=== PATIENT | female | born 1970 | race Caucasian/White ===

== ENCOUNTER → 2017-09-23 | Outpatient (CLI) | payer OTHER ==
[2017-09-23 13:03] LABS: Basophils % (A) 0 %; Eosinophils # (A) 0.1 k/uL (0-0.7); Eosinophils % (A) 1 %; HCT 39.8 % (34.0-46.0); Lymphocytes # (A) 2.2 k/uL (1.0-4.8); Lymphocytes % (A) 23 %; MCH 31.9 pg (25.0-35.0); MCHC 32.6 g/dL (31.0-37.0); MCV 97.7 fL (80.0-100.0); Mean Platelet Volume 7.1; Monocytes # (A) 0.4 k/uL (0-1.0); Monocytes % (A) 4 %; Neutrophils # (A) 6.7 k/uL (1.3-7.7); Neutrophils % (A) 70 %; Platelet Count 248 k/uL (150-450); RBC 4.07 m/uL (3.80-5.40); RDW 12.6 % (11.5-15.5); WBC 9.5 k/uL (3.8-10.6)
[2017-09-23 13:15] LABS: ALT 22 U/L (9-52); AST 22 U/L (14-36); Albumin 4.4 g/dL (3.5-5.0); Alkaline Phosphatase 64 U/L (38-126); Anion Gap 7 mmol/L; Blood Urea Nitrogen 10 mg/dL (7-17); Calcium 9.4 mg/dL (8.4-10.2); Carbon Dioxide 25 mmol/L (22-30); Chloride 106 mmol/L (98-107); Cholesterol 181 mg/dL (<200); Glucose 106 mg/dL (74-99); Potassium 4.6 mmol/L (3.5-5.1); Sodium 138 mmol/L (137-145); Total Bilirubin 0.4 mg/dL (0.2-1.3); Total Protein 7.2 g/dL (6.3-8.2); Triglycerides 77 mg/dL (<150)
[2017-09-23 13:22] LABS: LDL Cholesterol,Calculated 42 mg/dL (0-99)
[2017-09-23 13:24] LABS: HDL Cholesterol 124 mg/dL (40-60)
--- NOTE | 2017-09-23 16:28 | XR ---
EXAMINATION TYPE: XR chest 2V DATE OF EXAM: 09/23/2017 COMPARISON: Prior chest x-ray 05/16/2013 HISTORY: Chest pain TECHNIQUE: Frontal and lateral views of the chest are obtained. FINDINGS: There is no focal air space opacity, pleural effusion, or pneumothorax seen. The cardiac silhouette size is within normal limits. The osseous structures are intact. IMPRESSION: No acute cardiopulmonary process.
[2017-09-23 22:55] LABS: Hemoglobin A1C 5.2 % (4.0-6.0)
== END | disposition home or self-care (01) ==
LOC: LABWHC1 12:46
PROVIDERS: ATTEND Family Medicine
DX: R07.9 Chest pain, unspecified (principal); I82.409 Acute embolism and thrombosis of unspecified deep veins of unspecified lower extremity; I10 Essential (primary) hypertension; Z79.899 Other long term (current) drug therapy
CPT/HCPCS: 36415; 71046; 80053; 80061; 82672; 83001; 83036; 85025; 85379

== ENCOUNTER → 2017-09-25 | Outpatient (CLI) | payer OTHER ==
--- NOTE | 2017-09-25 14:30 | US ---
EXAMINATION TYPE: US abdomen comp/pelvis limited DATE OF EXAM: 09/25/2017 COMPARISON: CT abdomen pelvis 02/03/2016 CLINICAL HISTORY: N28.1 renal cyst, K76.89 liver cyst. Liver and renal cysts. History of kidney stone s. LLQ pain EXAM MEASUREMENTS: Liver Length: 14.4 cm Gallbladder Wall: 0.2 cm CBD: 0.3 cm Spleen: 9.7 cm Right Kidney: 10.6 x 3.9 x 4.5 cm Left Kidney: 10.3 x 5.8 x 4.9 cm Pancreas: visualized portions appear wnl Liver: multiple cystic areas, largest = 3.1 x 2.7 x 3.2cm correlate with CT findings Gallbladder: no evidence of stones CBD: wnl Spleen: wnl Right Kidney: cystic areas, largest = 1.4 x 1.3 x 1.3cm Left Kidney: cystic areas, largest = 2.3 x 2.1 x 2.6cm. dense echogenic area mid = 0.5cm Upper IVC: wnl Abd Aorta: wnl Bladder: wnl Bilateral Jets Seen yes Incidental finding: cystic area with septation left ovary = 3.2 x 3.3 x 2.8cm There is no ascites. Renal lesions are anechoic with imperceptible wall and show increased through tr ansmission compatible with simple cysts IMPRESSION: Cysts are again noted within the liver and kidneys, left-sided nonobstructive nephrolithi asis. Cystic left ovarian lesion with internal septation, follow-up suggested.
== END ==
LOC: RADUSWWP 10:54
PROVIDERS: ATTEND Family Medicine
DX: K76.89 Other specified diseases of liver (principal); N28.1 Cyst of kidney, acquired; N20.0 Calculus of kidney; N83.202 Unspecified ovarian cyst, left side
CPT/HCPCS: 76700; 76857

== ENCOUNTER 2018-05-06 21:33 | Emergency (ER) | payer OTHER ==
[2018-05-06 21:38] VITALS: TEMP 98.2
[2018-05-06] MEDS ORDERED: MORPHINE SULFATE 4 MG/ML SYRINGE IV STA (21:48)
[2018-05-06] MEDS ORDERED: SODIUM CHLORIDE 0.9% 1,000 ML IV STA (21:48)
--- NOTE | 2018-05-06 21:53 | ED ---
General Adult HPI - General Chief complaint: Urogenital Stated complaint: Kidney stone Time Seen by Provider: 05/06/18 21:43 Source: patient, RN notes reviewed, old records reviewed Mode of arrival: ambulatory Limitations: no limitations - History of Present Illness Initial comments: 47-year-old presenting for evaluation of left flank pain and hematuria. Patient has history of kidney stones. She states this is similar to her previous episodes. She reports bright red and throughout the day today. She states this is improving and is cleared up this evening. Pain is constant and localized in her lower abdomen and left flank. Patient has had some nausea, no vomiting. No fever or chills. No change in bowels. Patient is otherwise healthy. - Related Data Home Medications Medication Instructions Recorded Confirmed Dextroamphetamine/Amphetamine 20 mg PO DAILY 03/21/14 05/06/18 [Adderall] Ibuprofen [Motrin Ib] 200 mg PO Q6H PRN 05/06/18 05/06/18 Previous Rx's Medication Instructions Recorded HYDROcodone/APAP 5-325MG [[place] 1 tab PO Q6HR PRN #12 tab 05/06/18 5-325] Ibuprofen [Motrin] 600 mg PO Q8HR PRN #24 tab 05/06/18 Tamsulosin [Flomax] 0.4 mg PO DAILY #30 cap 05/06/18 Allergies Allergy/AdvReac Type Severity Reaction Status Date / Time No Known Allergies Allergy Verified 05/06/18 22:03 Review of Systems ROS Statement: Those systems with pertinent positive or pertinent negative responses have been documented in the HPI. ROS Other: All systems not noted in ROS Statement are negative. Past Medical History Past Medical History: No Reported History History of Any Multi-Drug Resistant Organisms: None Reported Past Surgical History: No Surgical Hx Reported Additional Past Surgical History / Comment(s): x 2, Tubal ligation Past Psychological History: Anxiety Smoking Status: Current every day smoker Past Alcohol Use History: Occasional Past Drug Use History: None Reported General Exam Limitations: no limitations General appearance: alert, in no apparent distress Head exam: Present: atraumatic, normocephalic Eye exam: Present: normal appearance, PERRL ENT exam: Present: normal exam Neck exam: Present: normal inspection. Absent: tenderness Respiratory exam: Present: normal lung sounds bilaterally. Absent: respiratory distress, wheezes Cardiovascular Exam: Present: regular rate, normal rhythm GI/Abdominal exam: Present: soft. Absent: distended, tenderness Extremities exam: Present: normal inspection, normal capillary refill. Absent: pedal edema Back exam: Present: normal inspection, full ROM, CVA tenderness (L) Neurological exam: Present: alert, oriented X3, CN II-XII intact. Absent: motor sensory deficit Psychiatric exam: Present: normal affect, normal mood Skin exam: Present: warm, dry, intact. Absent: cyanosis, diaphoretic Course Vital Signs 05/06/18 05/06/18 21:35 23:15 Temperature 98.2 F Pulse Rate 76 87 Respiratory 18 16 Rate Blood Pressure 157/100 157/97 O2 Sat by Pulse 99 99 Oximetry Medical Decision Making - Medical Decision Making 41 sexual female history kidney stones presenting with flank pain and hematuria. X-rays obtained, negative for stone or any acute intra-abdominal process. CT is obtained, shows mild bilateral hydronephrosis with a 5 mm stone in the left distal ureter. There is concern for some obstruction the right ureter as well although no definitive stone is identified. Patient has no blood cell count mildly elevated likely reactive. Hemoglobin stable 12.9, urinalysis consistent with stone and no infection. Greater than 182 red cells and only 10 white cells. Urine culture is obtained and is pending. Patient's given Toradol, and reevaluation she is feeling much better. No vomiting. She will urine strainer the emergency department and prescribed pain medications. She will follow-up with urology. - Lab Data Result diagrams: 05/06/18 21:53 05/06/18 21:53 Lab Results 05/06/18 05/06/18 05/06/18 Range/Units 21:53 21:53 21:53 WBC 12.9 H (3.8-10.6) k/uL RBC 4.06 (3.80-5.40) m/uL Hgb 12.9 (11.4-16.0) gm/dL Hct 40.1 (34.0-46.0) % MCV 98.8 (80.0-100.0) fL MCH 31.8 (25.0-35.0) pg MCHC 32.2 (31.0-37.0) g/dL RDW 12.7 (11.5-15.5) % Plt Count 243 (150-450) k/uL Neutrophils % 61 % Lymphocytes % 30 % Monocytes % 6 % Eosinophils % 1 % Basophils % 0 % Neutrophils # 7.8 H (1.3-7.7) k/uL Lymphocytes # 3.8 (1.0-4.8) k/uL Monocytes # 0.7 (0-1.0) k/uL Eosinophils # 0.2 (0-0.7) k/uL Basophils # 0.0 (0-0.2) k/uL PT (9.0-12.0) sec INR (<1.2) APTT (22.0-30.0) sec Sodium 137 (137-145) mmol/L Potassium 3.9 (3.5-5.1) mmol/L Chloride 105 (98-107) mmol/L Carbon Dioxide 23 (22-30) mmol/L Anion Gap 9 mmol/L BUN 19 H (7-17) mg/dL Creatinine 0.74 (0.52-1.04) mg/dL Est GFR (CKD-EPI)AfAm >90 (>60 ml/min/1.73 sqM) Est GFR (CKD-EPI)NonAf >90 (>60 ml/min/1.73 sqM) Glucose 90 (74-99) mg/dL Plasma Lactic Acid Han 0.9 (0.7-2.0) mmol/L Calcium 9.9 (8.4-10.2) mg/dL Total Bilirubin 0.4 (0.2-1.3) mg/dL AST 27 (14-36) U/L ALT 27 (9-52) U/L Alkaline Phosphatase 56 (38-126) U/L Total Protein 7.6 (6.3-8.2) g/dL Albumin 4.6 (3.5-5.0) g/dL Amylase 65 (30-110) U/L Lipase 97 (23-300) U/L Urine Color Urine Appearance (Clear) Urine pH (5.0-8.0) Ur Specific [place] (1.001-1.035) Urine Protein (Negative) Urine Glucose (UA) (Negative) Urine Ketones (Negative) Urine Blood (Negative) Urine Nitrite (Negative) Urine Bilirubin (Negative) Urine Urobilinogen (<2.0) mg/dL Ur Leukocyte Esterase (Negative) Urine RBC (0-5) /hpf Urine WBC (0-5) /hpf Ur Squamous Epith Cells (0-4) /hpf Urine Bacteria (None) /hpf Urine Mucus (None) /hpf 05/06/18 05/06/18 Range/Units 21:53 21:53 WBC (3.8-10.6) k/uL RBC (3.80-5.40) m/uL Hgb (11.4-16.0) gm/dL Hct (34.0-46.0) % MCV (80.0-100.0) fL MCH (25.0-35.0) pg MCHC (31.0-37.0) g/dL RDW (11.5-15.5) % Plt Count (150-450) k/uL Neutrophils % % Lymphocytes % % Monocytes % % Eosinophils % % Basophils % % Neutrophils # (1.3-7.7) k/uL Lymphocytes # (1.0-4.8) k/uL Monocytes # (0-1.0) k/uL Eosinophils # (0-0.7) k/uL Basophils # (0-0.2) k/uL PT 10.3 (9.0-12.0) sec INR 1.0 (<1.2) APTT 25.4 (22.0-30.0) sec Sodium (137-145) mmol/L Potassium (3.5-5.1) mmol/L Chloride (98-107) mmol/L Carbon Dioxide (22-30) mmol/L Anion Gap mmol/L BUN (7-17) mg/dL Creatinine (0.52-1.04) mg/dL Est GFR (CKD-EPI)AfAm (>60 ml/min/1.73 sqM) Est GFR (CKD-EPI)NonAf (>60 ml/min/1.73 sqM) Glucose (74-99) mg/dL Plasma Lactic Acid [place] (0.7-2.0) mmol/L Calcium (8.4-10.2) mg/dL Total Bilirubin (0.2-1.3) mg/dL AST (14-36) U/L ALT (9-52) U/L Alkaline Phosphatase (38-126) U/L Total Protein (6.3-8.2) g/dL Albumin (3.5-5.0) g/dL Amylase (30-110) U/L Lipase (23-300) U/L Urine Color Yellow Urine Appearance Clear (Clear) Urine pH 5.5 (5.0-8.0) Ur Specific [place] 1.006 (1.001-1.035) Urine Protein Trace H (Negative) Urine Glucose (UA) Negative (Negative) Urine Ketones Negative (Negative) Urine Blood Large H (Negative) Urine Nitrite Negative (Negative) Urine Bilirubin Negative (Negative) Urine Urobilinogen <2.0 (<2.0) mg/dL Ur Leukocyte Esterase Negative (Negative) Urine RBC >182 H (0-5) /hpf Urine WBC 10 H (0-5) /hpf Ur Squamous Epith Cells 2 (0-4) /hpf Urine Bacteria Occasional H (None) /hpf Urine Mucus Rare H (None) /hpf Disposition Clinical Impression: Kidney stone Disposition: HOME SELF-CARE Condition: Good Instructions: Kidney Stones (ED) Prescriptions: HYDROcodone/APAP 5-325MG [[place] 5-325] 1 tab PO Q6HR PRN #12 tab PRN Reason: Pain Ibuprofen [Motrin] 600 mg PO Q8HR PRN #24 tab PRN Reason: Pain Tamsulosin [Flomax] 0.4 mg PO DAILY #30 cap Is patient prescribed a controlled substance at d/c from ED?: No Referrals: Jude Keating MD [Primary Care Provider] - 1-2 days Arjun Sorenson MD [STAFF PHYSICIAN] - 1-2 days Time of Disposition: 23:50
[2018-05-06 22:21] LABS: Appearance,Urine Clear (Clear); Bacteria,Urine Occasional /hpf; Bilirubin,Urine Negative (Negative); Blood,Urine Large (Negative); Color,Urine Yellow; Glucose,Urine (UA) Negative (Negative); Ketones,Urine Negative (Negative); Leukocyte Esterase,Urine Negative (Negative); Mucus,Urine Rare /hpf; Nitrite,Urine Negative (Negative); PH, Urine 5.5 (5.0-8.0); Protein,Urine Trace (Negative); RBC,Urine >182 /hpf (0-5); Specific Gravity,Urine 1.006 (1.001-1.035); Squamous Epithelial Cell,Urine 2 /hpf (0-4); Urobilinogen,Urine <2.0 mg/dL (<2.0); WBC,Urine 10 /hpf (0-5)
[2018-05-06 22:22] LABS: Partial Thromboplastin Time 25.4 sec (22.0-30.0); Prothrombin Time 10.3 sec (9.0-12.0)
[2018-05-06 22:32] LABS: ALT 27 U/L (9-52); AST 27 U/L (14-36); Albumin 4.6 g/dL (3.5-5.0); Alkaline Phosphatase 56 U/L (38-126); Amylase 65 U/L (30-110); Anion Gap 9 mmol/L; Blood Urea Nitrogen 19 mg/dL (7-17); Calcium 9.9 mg/dL (8.4-10.2); Carbon Dioxide 23 mmol/L (22-30); Chloride 105 mmol/L (98-107); Glucose 90 mg/dL (74-99); Lipase 97 U/L (23-300); Potassium 3.9 mmol/L (3.5-5.1); Sodium 137 mmol/L (137-145); Total Bilirubin 0.4 mg/dL (0.2-1.3); Total Protein 7.6 g/dL (6.3-8.2)
[2018-05-06 22:48] LABS: Basophils % (A) 0 %; Eosinophils # (A) 0.2 k/uL (0-0.7); Eosinophils % (A) 1 %; HCT 40.1 % (34.0-46.0); HGB 12.9 gm/dL (11.4-16.0); Lymphocytes # (A) 3.8 k/uL (1.0-4.8); Lymphocytes % (A) 30 %; MCH 31.8 pg (25.0-35.0); MCHC 32.2 g/dL (31.0-37.0); MCV 98.8 fL (80.0-100.0); Mean Platelet Volume 6.4; Monocytes # (A) 0.7 k/uL (0-1.0); Monocytes % (A) 6 %; Neutrophils # (A) 7.8 k/uL (1.3-7.7); Neutrophils % (A) 61 %; Platelet Count 243 k/uL (150-450); RBC 4.06 m/uL (3.80-5.40); RDW 12.7 % (11.5-15.5); WBC 12.9 k/uL (3.8-10.6)
--- NOTE | 2018-05-06 22:56 | XR ---
EXAMINATION TYPE: XR KUB DATE OF EXAM: 05/06/2018 COMPARISON: 02/03/2016 HISTORY: Abdominal pain TECHNIQUE: 2 views upright FINDINGS: Bowel gas pattern is normal. There is no sign of intestinal obstruction or pneumoperitoneum . Fecal pattern is normal. Lung bases are clear. There are clips from tubal ligation. There are no pa thologic ossifications over the kidneys. IMPRESSION: Nonacute abdomen. No change.
[2018-05-06] MEDS ORDERED: KETOROLAC 30 MG/ML 1 ML VIAL IVP STA (23:05)
[2018-05-06 23:16] VITALS: BP 157/97; PULSE 87; RESP 16
--- NOTE | 2018-05-06 23:17 | CT ---
EXAMINATION TYPE: CT abdomen pelvis wo con DATE OF EXAM: 05/06/2018 COMPARISON: 02/03/2016 HISTORY: Bilateral abd pain, r/o stones CT DLP: 292.90 mGycm Automated exposure control for dose reduction was used. TECHNIQUE: Helical acquisition of images was performed from the lung bases through the pelvis. FINDINGS: Lung bases are clear. There is no pleural effusion. Heart size is normal. There is no pericardial eff usion. There are multiple cysts in the liver that measure up to 3 cm. Bile ducts are not dilated. Gal lbladder appears normal. Spleen appears normal. There is no pancreatic mass. There is no adrenal mass. Kidneys have normal size. There is bilateral hydronephrosis. This appears w orse on the left side. The left ureter is slightly dilated and there is a possible 5 mm calculus at t he left ureteral vesicle junction. The right ureter distally is not well identified. Its possible the re is a small stone in the distal right ureter also. Bladder distends smoothly. I see no calculus wit hin the kidneys. Uterus is anteverted. There is no inguinal hernia. There is no free fluid in the pel vis. I see no intestinal wall thickening. There are no dilated loops. There are clips from tubal liga tion. There is elongated appendix that is filled with air. There is no sign of appendicitis. The lumb ar spine is intact. Bony pelvis appears intact. There are vascular calcifications in the pelvis. There is a 3 mm calculus upper pole left kidney. I see no definite calculus in the right kidney. IMPRESSION: Mild bilateral hydronephrosis. This appears slightly increased on the right side and unchanged on the left side compared to old exam. There is probably a small obstructing calculus distal left ureter. P ossible distal right ureteral calculus. Small calculus left kidney. If there is indication to confirm an obstruction and a calculus then IVP exam is recommended.
== END 2018-05-07 00:07 | disposition home or self-care (01) ==
LOC: EC 21:33
DX: N13.2 Hydronephrosis with renal and ureteral calculous obstruction (principal); F17.200 Nicotine dependence, unspecified, uncomplicated; Z98.51 Tubal ligation status; Z79.899 Other long term (current) drug therapy
CPT/HCPCS: 36415; 80053; 82150; 83605; 83690; 85025; 85610; 85730; 81001; 87040; 87086; 74018; 74176; 99285; 96374; 96375; 96361 ×2; J2270; J1885

== ENCOUNTER → 2018-09-20 | Outpatient (CLI) | payer OTHER ==
--- NOTE | 2018-09-20 13:01 | XR ---
Left hand HISTORY: Trauma and pain 2 views of left hand Bone mineralization, joint spaces and alignment are maintained. Mild arthropathy changes are noted. IMPRESSION: No fracture or dislocation.
== END ==
LOC: RADXRMAIN 12:05
PROVIDERS: ATTEND Family Medicine
DX: M79.642 Pain in left hand (principal)

== ENCOUNTER → 2020-10-15 | Outpatient (CLI) | payer OTHER ==
--- NOTE | 2020-10-16 08:22 | CT ---
EXAMINATION TYPE: CT abdomen wo con DATE OF EXAM: 10/15/2020 HISTORY: Bloody stool, LT side abdomen pain CT DLP: 217 mGycm. Automated Exposure Control for Dose Reduction was Utilized. TECHNIQUE: CT scan of the abdomen is performed without oral or IV contrast. COMPARISON: CT abdomen and pelvis May 06, 2018 FINDINGS: Within the limitations of a non-contrast study, the following observations are made. LUNG BASES: No significant abnormality is appreciated. LIVER/GB: Scattered hypodense lesions throughout the liver consistent with simple thin-walled cysts a re redemonstrated. PANCREAS: No significant abnormality is seen. SPLEEN: No significant abnormality is seen. ADRENALS: No significant abnormality is seen. KIDNEYS: Increase in size and number of left renal calculi. There are 3 left-sided renal calculi radha uring up to 5 mm in size on current study. There is stable 2.4 x 1.8 cm thin-walled cyst mid to lower pole of the left kidney coronal image 45. New roughly 1.0 cm hypodense lesion lower pole right kidne y axial image 33 too small to further characterize presumed benign. No hydronephrosis seen bilaterall y on current study. BOWEL: Suboptimal evaluation of bowel without enteric contrast. No suspicious small or large bowel s tation is seen. Mildly distended fluid-filled stomach. Mildly prominent small bowel loops in the visu alized abdomen. [id number] wall thickening visualized portion of the left and transverse colon LYMPH NODES: No greater than 1cm abdominal lymph nodes are appreciated. OSSEOUS STRUCTURES: No significant abnormality is seen. OTHER: No significant additional abnormality is seen. IMPRESSION: Suboptimal study. Overall nonspecific but strongly favor nonobstructive bowel gas pattern . Areas of mild to moderate wall thickening in visualized portion of left and transverse colon could reflect products of a mild uncomplicated acute colitis, correlate clinically.
== END | disposition home or self-care (01) ==
LOC: RADCTMAIN 16:32
PROVIDERS: ATTEND Family Medicine
DX: K92.1 Melena (principal); R10.9 Unspecified abdominal pain
CPT/HCPCS: 74150

== ENCOUNTER → 2020-12-04 | Outpatient (CLI) | payer OTHER ==
--- NOTE | 2020-12-04 16:40 | US ---
EXAMINATION TYPE: US kidneys/renal and bladder DATE OF EXAM: 12/04/2020 COMPARISON: 09/25/2017 CLINICAL HISTORY: N28.1 RENAL CYST. Hx renal cyst. EXAM MEASUREMENTS: Right Kidney: 10.1 x 5.2 x 4.7 cm Left Kidney: 10.0 x 4.8 x 5.2 cm Right Kidney: upper pole cystic lesion = 0.8 x 1.0 x 0.6 cm. Lower pole cystic lesion - 1.0 x 1.0 x 1.0 cm. Medial anechoic lesion at hilum -1.2 x 1.3 cm Left Kidney: multiple cystic lesions seen, largest lower pole medial= 3.2 x 2.3 x 2.2 cm. Mid pole echogenic focus is probably renal calculus = 0.5 cm. Bladder: mildly distended, anchonic Bilateral Jets not seen Impression: 1. No hydronephrosis. Probable 5 mm mid pole left renal calculus. 2. Bilateral renal cystic structures the largest of which are described. The largest at the lower jeff e of the left kidney measures 3.2 cm.
== END | disposition home or self-care (01) ==
LOC: RADUSWWP 14:48
PROVIDERS: ATTEND Family Medicine
DX: N28.1 Cyst of kidney, acquired (principal)
CPT/HCPCS: 76770

== ENCOUNTER 2022-01-29 03:27 | Inpatient (IN) | payer OTHER ==
[2022-01-29 04:28] LABS: Basophils % (A) 0 %; Eosinophils # (A) 0.1 k/uL (0-0.7); Eosinophils % (A) 1 %; HCT 38.3 % (34.0-46.0); HGB 12.7 gm/dL (11.4-16.0); Lymphocytes # (A) 1.8 k/uL (1.0-4.8); Lymphocytes % (A) 15 %; MCH 33.1 pg (25.0-35.0); MCHC 33.2 g/dL (31.0-37.0); MCV 99.6 fL (80.0-100.0); Mean Platelet Volume 7.6; Monocytes # (A) 0.4 k/uL (0-1.0); Monocytes % (A) 3 %; Neutrophils # (A) 9.3 k/uL (1.3-7.7); Neutrophils % (A) 80 %; Platelet Count 209 k/uL (150-450); RBC 3.85 m/uL (3.80-5.40); RDW 12.4 % (11.5-15.5); WBC 11.7 k/uL (3.8-10.6)
[2022-01-29] MEDS ORDERED: MORPHINE SULFATE 4 MG/ML SYRINGE IV STA (04:29)
--- NOTE | 2022-01-29 04:32 | ED ---
Female Urogenital HPI - General Source: patient Mode of arrival: ambulatory Limitations: no limitations - History of Present Illness Complaint: other -: days(s) Location: suprapubic Radiation: non-radiating Quality: cramping, stabbing Consistency: intermittent Improves with: none Worsens with: none Patient : No <Freddie Fay - Last Filed: 01/29/22 06:03> <Cam Reid - Last Filed: 01/29/22 11:15> - General Chief complaint: Urogenital Stated complaint: Abd Pain Time Seen by Provider: 01/29/22 04:00 - History of Present Illness Initial comments: This patient is a 51-year-old woman who presents with complaint that she is having frequent urge to urinate but not urinating much. She believes she is retaining urine. Patient states she has had similar symptoms previously with kidney stone. Things started flaring up about 3 days ago. Things were slightly worse tonight so she presents to have evaluation. She has not noted fever or chills. No nausea or vomiting. No change in bowel movements. She has not noted hematuria (Freddie Fay) - Related Data Home Medications Medication Instructions Recorded Confirmed Dextroamphetamine/Amphetamine 20 mg PO DAILY 03/21/14 10/07/21 [Adderall] Previous Rx's Medication Instructions Recorded HYDROcodone/APAP 5-325MG [[place] 1 tab PO Q4HR PRN 3 Days #18 tab 01/29/22 5-325] Ondansetron Odt [Zofran ODT] 4 mg PO Q8HR PRN #10 tab 01/29/22 Tamsulosin [Flomax] 0.4 mg PO DAILY #14 cap 01/29/22 Allergies Allergy/AdvReac Type Severity Reaction Status Date / Time No Known Allergies Allergy Verified 01/29/22 03:31 Review of Systems ROS Other: All systems not noted in ROS Statement are negative. Constitutional: Denies: fever, chills Respiratory: Denies: cough, dyspnea Cardiovascular: Denies: chest pain, palpitations, edema Gastrointestinal: Reports: abdominal pain. Denies: nausea, vomiting, diarrhea, constipation Genitourinary: Reports: urgency, frequency. Denies: dysuria, hematuria, discharge, abnormal menses Musculoskeletal: Denies: back pain Skin: Denies: rash Neurological: Denies: headache, weakness, numbness <Freddie Fay - Last Filed: 01/29/22 06:03> ROS Other: All systems not noted in ROS Statement are negative. <Cam Reid - Last Filed: 01/29/22 11:15> ROS Statement: Those systems with pertinent positive or pertinent negative responses have been documented in the HPI. Past Medical History Past Medical History: No Reported History Additional Past Medical History / Comment(s): HEMORRHOIDS. LOWER LT ABD. PAIN. LT KIDNEY STONE. SEEN IN ER 09/22/21 IN [place] FOR SWALLOWING A TANYA PIN- EGD WAS DONE AND TANYA PIN RETRIEVED History of Any Multi-Drug Resistant Organisms: None Reported Past Surgical History: Section, Tubal Ligation, Uterine Ablation Additional Past Surgical History / Comment(s): x 2,. [id number] OF SWALLOWED TANYA PIN Past Anesthesia/Blood Transfusion Reactions: No Reported Reaction Past Psychological History: ADD/ADHD, Anxiety Smoking Status: Current every day smoker Past Alcohol Use History: Occasional Past Drug Use History: None Reported - Past Family History Mother Family Medical History: No Reported History <Freddie Fay - Last Filed: 01/29/22 06:03> General Exam Limitations: no limitations General appearance: alert, in no apparent distress Head exam: Present: atraumatic, normocephalic Eye exam: Present: normal appearance. Absent: scleral icterus, conjunctival injection Respiratory exam: Present: normal lung sounds bilaterally. Absent: respiratory distress, wheezes, rales, rhonchi, stridor Cardiovascular Exam: Present: regular rate, normal rhythm, normal heart sounds. Absent: systolic murmur, diastolic murmur, rubs, gallop GI/Abdominal exam: Present: soft. Absent: distended, tenderness, guarding, rebound, rigid, mass Extremities exam: Present: normal inspection, normal capillary refill. Absent: pedal edema, calf tenderness Back exam: Present: normal inspection. Absent: CVA tenderness (R), CVA tenderness (L) Neurological exam: Present: alert Skin exam: Present: warm, dry, intact, normal color. Absent: rash <DontrellFreddie galvez - Last Filed: 01/29/22 06:03> Course Vital Signs 01/29/22 01/29/22 01/29/22 03:29 06:00 09:30 Temperature 98.4 F Pulse Rate 91 70 88 Respiratory 18 16 Rate Blood Pressure 159/95 118/64 146/82 O2 Sat by Pulse 98 98 Oximetry Medical Decision Making - Lab Data Result diagrams: 01/29/22 04:10 01/29/22 04:10 <Freddie Fay - Last Filed: 01/29/22 06:03> - Lab Data Result diagrams: 01/29/22 04:10 01/29/22 04:10 <Cam Reid - Last Filed: 01/29/22 11:15> - Medical Decision Making The patient had previously been discharged but did not feel well after medications and due to the kidney stone which was noted on CAT scan she has a 5 mm stone distal left ureter with evidence of obstruction. Patient remained nauseated with some pain. I did discuss findings with patient family. Patient does have a history of urinary tract infections. Patient has requested admission and Dr. Keating which was accomplished I did discuss the case with Dr. Cadena patient will be nothing by mouth and go to the operating room this afternoon for left ureteral stent placement. (Cam Reid) - Lab Data Lab Results 01/29/22 01/29/22 01/29/22 Range/Units 04:10 04:10 04:39 WBC 11.7 H (3.8-10.6) k/uL RBC 3.85 (3.80-5.40) m/uL Hgb 12.7 (11.4-16.0) gm/dL Hct 38.3 (34.0-46.0) % MCV 99.6 (80.0-100.0) fL MCH 33.1 (25.0-35.0) pg MCHC 33.2 (31.0-37.0) g/dL RDW 12.4 (11.5-15.5) % Plt Count 209 (150-450) k/uL MPV 7.6 Neutrophils % 80 % Lymphocytes % 15 % Monocytes % 3 % Eosinophils % 1 % Basophils % 0 % Neutrophils # 9.3 H (1.3-7.7) k/uL Lymphocytes # 1.8 (1.0-4.8) k/uL Monocytes # 0.4 (0-1.0) k/uL Eosinophils # 0.1 (0-0.7) k/uL Basophils # 0.0 (0-0.2) k/uL Sodium 130 L (137-145) mmol/L Potassium 3.5 (3.5-5.1) mmol/L Chloride 97 L (98-107) mmol/L Carbon Dioxide 24 (22-30) mmol/L Anion Gap 9 mmol/L BUN 13 (7-17) mg/dL Creatinine 0.97 (0.52-1.04) mg/dL Est GFR (CKD-EPI)AfAm 79 (>60 ml/min/1.73 sqM) Est GFR (CKD-EPI)NonAf 69 (>60 ml/min/1.73 sqM) Glucose 147 H (74-99) mg/dL Calcium 9.3 (8.4-10.2) mg/dL Total Bilirubin 0.6 (0.2-1.3) mg/dL AST 30 (14-36) U/L ALT 27 (4-34) U/L Alkaline Phosphatase 73 (38-126) U/L Total Protein 7.0 (6.3-8.2) g/dL Albumin 4.3 (3.5-5.0) g/dL Amylase 49 (30-110) U/L Lipase 30 (23-300) U/L Urine Color Dark Brown Urine Appearance Clear (Clear) Urine pH 6.0 (5.0-8.0) Ur Specific [place] 1.006 (1.001-1.035) Urine Protein Negative (Negative) Urine Glucose (UA) Negative (Negative) Urine Ketones Negative (Negative) Urine Blood Large H (Negative) Urine Nitrite Positive H (Negative) Urine Bilirubin 1+ H (Negative) Urine Urobilinogen 2.0 (<2.0) mg/dL Ur Leukocyte Esterase Negative (Negative) Urine RBC 5 (0-5) /hpf Urine WBC 2 (0-5) /hpf Ur Squamous Epith Cells 3 (0-4) /hpf Urine Bacteria Few H (None) /hpf Urine Mucus Rare H (None) /hpf Urine HCG, Qual (Not Detectd) 01/29/22 Range/Units 04:39 WBC (3.8-10.6) k/uL RBC (3.80-5.40) m/uL Hgb (11.4-16.0) gm/dL Hct (34.0-46.0) % MCV (80.0-100.0) fL MCH (25.0-35.0) pg MCHC (31.0-37.0) g/dL RDW (11.5-15.5) % Plt Count (150-450) k/uL MPV Neutrophils % % Lymphocytes % % Monocytes % % Eosinophils % % Basophils % % Neutrophils # (1.3-7.7) k/uL Lymphocytes # (1.0-4.8) k/uL Monocytes # (0-1.0) k/uL Eosinophils # (0-0.7) k/uL Basophils # (0-0.2) k/uL Sodium (137-145) mmol/L Potassium (3.5-5.1) mmol/L Chloride (98-107) mmol/L Carbon Dioxide (22-30) mmol/L Anion Gap mmol/L BUN (7-17) mg/dL Creatinine (0.52-1.04) mg/dL Est GFR (CKD-EPI)AfAm (>60 ml/min/1.73 sqM) Est GFR (CKD-EPI)NonAf (>60 ml/min/1.73 sqM) Glucose (74-99) mg/dL Calcium (8.4-10.2) mg/dL Total Bilirubin (0.2-1.3) mg/dL AST (14-36) U/L ALT (4-34) U/L Alkaline Phosphatase (38-126) U/L Total Protein (6.3-8.2) g/dL Albumin (3.5-5.0) g/dL Amylase (30-110) U/L Lipase (23-300) U/L Urine Color Urine Appearance (Clear) Urine pH (5.0-8.0) Ur Specific [place] (1.001-1.035) Urine Protein (Negative) Urine Glucose (UA) (Negative) Urine Ketones (Negative) Urine Blood (Negative) Urine Nitrite (Negative) Urine Bilirubin (Negative) Urine Urobilinogen (<2.0) mg/dL Ur Leukocyte Esterase (Negative) Urine RBC (0-5) /hpf Urine WBC (0-5) /hpf Ur Squamous Epith Cells (0-4) /hpf Urine Bacteria (None) /hpf Urine Mucus (None) /hpf Urine HCG, Qual Not Detected (Not Detectd) Disposition Is patient prescribed a controlled substance at d/c from ED?: Yes <Freddie Fay - Last Filed: 01/29/22 06:03> Decision Date: 01/29/22 Decision Time: 11:00 <Cam Reid - Last Filed: 01/29/22 11:15> Clinical Impression: Kidney stone on left side, Ureteral obstruction, left, Intractable nausea and vomiting Disposition: ADMITTED IP TO THIS [facility] Condition: Fair Instructions (If sedation given, give patient instructions): Kidney Stones (ED) Prescriptions: Tamsulosin [Flomax] 0.4 mg PO DAILY #14 cap HYDROcodone/APAP 5-325MG [[place] 5-325] 1 tab PO Q4HR PRN 3 Days #18 tab PRN Reason: Pain Ondansetron Odt [Zofran ODT] 4 mg PO Q8HR PRN #10 tab PRN Reason: Nausea Referrals: Jude Keating MD [Primary Care Provider] - 1-2 days Arjun Sorenson MD [STAFF PHYSICIAN] - 1-2 days
--- NOTE | 2022-01-29 05:04 | XR ---
EXAMINATION TYPE: XR KUB DATE OF EXAM: 01/29/2022 COMPARISON: 05/06/2018 HISTORY: Abdominal pain TECHNIQUE: 2 views upright FINDINGS: There is no central intestinal obstruction or pneumoperitoneum. Fecal pattern is normal. No evidence of a mass. Lung bases are clear. There are no pathologic calcifications over the kidneys. B samy structures are intact. There are clips from tubal ligation. IMPRESSION: Nonacute abdomen. No adverse change.
[2022-01-29 05:19] LABS: Albumin 4.3 g/dL (3.5-5.0); Calcium 9.3 mg/dL (8.4-10.2); Potassium 3.5 mmol/L (3.5-5.1); Total Bilirubin 0.6 mg/dL (0.2-1.3)
[2022-01-29 05:26] LABS: Appearance,Urine Clear (Clear); Bacteria,Urine Few /hpf; Bilirubin,Urine 1+ (Negative); Blood,Urine Large (Negative); Color,Urine Dark Brown; Glucose,Urine (UA) Negative (Negative); Ketones,Urine Negative (Negative); Leukocyte Esterase,Urine Negative (Negative); Mucus,Urine Rare /hpf; Nitrite,Urine Positive (Negative); Protein,Urine Negative (Negative); RBC,Urine 5 /hpf (0-5); Specific Gravity,Urine 1.006 (1.001-1.035); Squamous Epithelial Cell,Urine 3 /hpf (0-4); WBC,Urine 2 /hpf (0-5)
[2022-01-29] MEDS ORDERED: HYDROmorphone 0.5 MG/0.5 ML SYRINGE IVP STA ×2 (05:27→06:26)
--- NOTE | 2022-01-29 05:43 | CT ---
EXAMINATION TYPE: CT abdomen pelvis wo con DATE OF EXAM: 01/29/2022 COMPARISON: 10/15/2020 HISTORY: Abdominal pain, urinary retention. Pt states she has a left sided kidney stone. CT DLP: 312.8 mGycm Automated exposure control for dose reduction was used. Images obtained from the diaphragm to the floor of the pelvis with no contrast. There are numerous cysts throughout the liver that measure up to 3 cm. Stomach is intact. There is no pancreatic mass. Spleen is intact. Gallbladder appears normal. The bile ducts are not dilated. There is mild subsegmental atelectasis at the lung bases. Heart size is normal. There is moderate left-sided hydronephrosis and hydroureter. There is a 4 mm calculus posterior left kidney. There is 5 mm obstructing calculus in the distal left ureter. Urinary bladder is almost empty . Uterus is anteverted. No free fluid in the pelvis. There are sigmoid diverticula. No diverticulitis . Appendix not clearly seen. No sign of thickened appendix. No inguinal hernia. There is no mesenteric edema. No ascites or free air. No sign of a bowel obstruction. The lumbar vertebra have normal alignment. There is left side L5 spondylolysis without spondylolisthe sis. The bony pelvis is intact. The hip joints are intact. IMPRESSION: Obstructing calculus distal left ureter with hydronephrosis and hydroureter which is a change compare d to old exam. Left side renal calculus. There is decrease in the number of left-sided renal calculi compared to the old exam. There is some colonic diverticulosis without diverticulitis. Numerous stable hepatic cysts. Subsegmen gary atelectasis appears new compared to old exam.
[2022-01-29] MEDS ORDERED: TAMSULOSIN 0.4 MG CAP.ER.24H PO STA (05:55)
[2022-01-29] MEDS ORDERED: ONDANSETRON 4 MG ODT STARTER PACK 2 TAB BTL PO STA (08:48)
[2022-01-29] MEDS ORDERED: SODIUM CHLORIDE 0.9% 1,000 ML IV ONE (09:54)
[2022-01-29] MEDS ORDERED: ONDANSETRON 4 MG/2 ML VIAL IVP STA (09:54)
[2022-01-29 10:03] VITALS: RESP 16
[2022-01-29] MEDS ORDERED: cefTRIAXone IN SWFI 1,000 MG/10 ML SYRINGE IVP STA (11:12)
[2022-01-29] MEDS ORDERED: KETOROLAC 15 MG/ML 1 ML VIAL IVP PRN (11:16)
[2022-01-29] MEDS ORDERED: ONDANSETRON 4 MG/2 ML VIAL IVP PRN (11:16)
[2022-01-29] MEDS ORDERED: NALOXONE 0.4 MG/ML 1 ML VIAL IV PRN (11:16)
[2022-01-29] MEDS ORDERED: SODIUM CHLORIDE 0.9% 1,000 ML IV SCH (11:30)
[2022-01-29 13:50] VITALS: BP 122/77; PULSE 60; TEMP 97.5
--- NOTE | 2022-01-29 14:41 | ED ---
Medical Decision Making - Medical Decision Making Patient was taken to be taken to operating room for a planned left ureteral stent she did however spontaneously passed the ureteral lithiasis. She get much improvement after this did occur. As per Dr. Cadena patient will be discharged. - Lab Data Result diagrams: 01/29/22 04:10 01/29/22 04:10 Lab Results 01/29/22 01/29/22 01/29/22 Range/Units 04:10 04:10 04:39 WBC 11.7 H (3.8-10.6) k/uL RBC 3.85 (3.80-5.40) m/uL Hgb 12.7 (11.4-16.0) gm/dL Hct 38.3 (34.0-46.0) % MCV 99.6 (80.0-100.0) fL MCH 33.1 (25.0-35.0) pg MCHC 33.2 (31.0-37.0) g/dL RDW 12.4 (11.5-15.5) % Plt Count 209 (150-450) k/uL MPV 7.6 Neutrophils % 80 % Lymphocytes % 15 % Monocytes % 3 % Eosinophils % 1 % Basophils % 0 % Neutrophils # 9.3 H (1.3-7.7) k/uL Lymphocytes # 1.8 (1.0-4.8) k/uL Monocytes # 0.4 (0-1.0) k/uL Eosinophils # 0.1 (0-0.7) k/uL Basophils # 0.0 (0-0.2) k/uL Sodium 130 L (137-145) mmol/L Potassium 3.5 (3.5-5.1) mmol/L Chloride 97 L (98-107) mmol/L Carbon Dioxide 24 (22-30) mmol/L Anion Gap 9 mmol/L BUN 13 (7-17) mg/dL Creatinine 0.97 (0.52-1.04) mg/dL Est GFR (CKD-EPI)AfAm 79 (>60 ml/min/1.73 sqM) Est GFR (CKD-EPI)NonAf 69 (>60 ml/min/1.73 sqM) Glucose 147 H (74-99) mg/dL Calcium 9.3 (8.4-10.2) mg/dL Total Bilirubin 0.6 (0.2-1.3) mg/dL AST 30 (14-36) U/L ALT 27 (4-34) U/L Alkaline Phosphatase 73 (38-126) U/L Total Protein 7.0 (6.3-8.2) g/dL Albumin 4.3 (3.5-5.0) g/dL Amylase 49 (30-110) U/L Lipase 30 (23-300) U/L Urine Color Dark Brown Urine Appearance Clear (Clear) Urine pH 6.0 (5.0-8.0) Ur Specific [place] 1.006 (1.001-1.035) Urine Protein Negative (Negative) Urine Glucose (UA) Negative (Negative) Urine Ketones Negative (Negative) Urine Blood Large H (Negative) Urine Nitrite Positive H (Negative) Urine Bilirubin 1+ H (Negative) Urine Urobilinogen 2.0 (<2.0) mg/dL Ur Leukocyte Esterase Negative (Negative) Urine RBC 5 (0-5) /hpf Urine WBC 2 (0-5) /hpf Ur Squamous Epith Cells 3 (0-4) /hpf Urine Bacteria Few H (None) /hpf Urine Mucus Rare H (None) /hpf Urine HCG, Qual (Not Detectd) 01/29/22 Range/Units 04:39 WBC (3.8-10.6) k/uL RBC (3.80-5.40) m/uL Hgb (11.4-16.0) gm/dL Hct (34.0-46.0) % MCV (80.0-100.0) fL MCH (25.0-35.0) pg MCHC (31.0-37.0) g/dL RDW (11.5-15.5) % Plt Count (150-450) k/uL MPV Neutrophils % % Lymphocytes % % Monocytes % % Eosinophils % % Basophils % % Neutrophils # (1.3-7.7) k/uL Lymphocytes # (1.0-4.8) k/uL Monocytes # (0-1.0) k/uL Eosinophils # (0-0.7) k/uL Basophils # (0-0.2) k/uL Sodium (137-145) mmol/L Potassium (3.5-5.1) mmol/L Chloride (98-107) mmol/L Carbon Dioxide (22-30) mmol/L Anion Gap mmol/L BUN (7-17) mg/dL Creatinine (0.52-1.04) mg/dL Est GFR (CKD-EPI)AfAm (>60 ml/min/1.73 sqM) Est GFR (CKD-EPI)NonAf (>60 ml/min/1.73 sqM) Glucose (74-99) mg/dL Calcium (8.4-10.2) mg/dL Total Bilirubin (0.2-1.3) mg/dL AST (14-36) U/L ALT (4-34) U/L Alkaline Phosphatase (38-126) U/L Total Protein (6.3-8.2) g/dL Albumin (3.5-5.0) g/dL Amylase (30-110) U/L Lipase (23-300) U/L Urine Color Urine Appearance (Clear) Urine pH (5.0-8.0) Ur Specific [place] (1.001-1.035) Urine Protein (Negative) Urine Glucose (UA) (Negative) Urine Ketones (Negative) Urine Blood (Negative) Urine Nitrite (Negative) Urine Bilirubin (Negative) Urine Urobilinogen (<2.0) mg/dL Ur Leukocyte Esterase (Negative) Urine RBC (0-5) /hpf Urine WBC (0-5) /hpf Ur Squamous Epith Cells (0-4) /hpf Urine Bacteria (None) /hpf Urine Mucus (None) /hpf Urine HCG, Qual Not Detected (Not Detectd) Disposition Clinical Impression: Kidney stone on left side, Ureteral obstruction, left, Intractable nausea and vomiting Disposition: ADMITTED IP TO THIS [facility] Condition: Fair Is patient prescribed a controlled substance at d/c from ED?: No Decision Date: 01/29/22 Decision Time: 14:00
--- NOTE | 2022-01-29 18:01 | P.GSCN ---
History of Present Illness Consult date: 01/29/22 Reason for Consult: UTI, ureteral calculus Requesting physician: Cam Reid History of present illness: The patient is a 51-year-old white female with a history of urolithiasis. She was recently treated with ciprofloxacin for a UTI, but her symptoms failed to resolve. Review of Systems - Constitutional Denies chills, Denies fever - Gastrointestinal Reports abdominal pain, Denies nausea, Denies vomiting - Genitourinary Genitourinary: Reports as per HPI, Reports flank pain, Reports kidney stones, Denies dysuria, Denies hematuria Past Medical History Past Medical History: No Reported History Additional Past Medical History / Comment(s): HEMORRHOIDS. LOWER LT ABD. PAIN. LT KIDNEY STONE. SEEN IN ER 09/22/21 IN [place] FOR SWALLOWING A TANYA PIN-EGD WAS DONE AND TANYA PIN RETRIEVED History of Any Multi-Drug Resistant Organisms: None Reported Past Surgical History: Section, Tubal Ligation, Uterine Ablation Additional Past Surgical History / Comment(s): x 2,. [id number] OF SWALLOWED TANYA PIN Past Anesthesia/Blood Transfusion Reactions: No Reported Reaction Past Psychological History: ADD/ADHD, Anxiety Smoking Status: Current every day smoker Past Alcohol Use History: Occasional Past Drug Use History: None Reported - Past Family History Mother Family Medical History: No Reported History Medications and Allergies Home Medications Medication Instructions Recorded Confirmed Type Dextroamphetamine/Amphetamine 30 mg PO DAILY 01/29/22 01/29/22 History [Adderall] HYDROcodone/APAP 5-325MG [[place] 1 tab PO Q4HR PRN 3 Days #18 tab 01/29/22 Rx 5-325] Ondansetron Odt [Zofran ODT] 4 mg PO Q8HR PRN #10 tab 01/29/22 Rx Phenazopyridine HCl 95 mg PO TID PRN 01/29/22 01/29/22 History Tamsulosin [Flomax] 0.4 mg PO DAILY #14 cap 01/29/22 Rx Allergies Allergy/AdvReac Type Severity Reaction Status Date / Time No Known Allergies Allergy Verified 01/29/22 11:34 Surgical - Exam Vital Signs Temp Pulse Resp BP Pulse Ox 98.4 F 91 18 159/95 98 01/29/22 03:29 01/29/22 03:29 01/29/22 03:29 01/29/22 03:29 01/29/22 03:29 - General well developed, well nourished, no distress - Neck no masses, trachea midline - Respiratory normal respiratory effort - Abdomen Soft, non-distended, no mass. Mild left-sided tenderness, no guarding or rebound. - Psychiatric oriented to time, oriented to person, oriented to place, speech is normal, memory intact Results - Labs 01/29/22 04:10 01/29/22 04:10 Abnormal Lab Results - Last 24 Hours (Table) 01/29/22 01/29/22 01/29/22 Range/Units 04:10 04:10 04:39 WBC 11.7 H (3.8-10.6) k/uL Neutrophils # 9.3 H (1.3-7.7) k/uL Sodium 130 L (137-145) mmol/L Chloride 97 L (98-107) mmol/L Glucose 147 H (74-99) mg/dL Urine Blood Large H (Negative) Urine Nitrite Positive H (Negative) Urine Bilirubin 1+ H (Negative) Urine Bacteria Few H (None) /hpf Urine Mucus Rare H (None) /hpf Diabetes panel 01/29/22 Range/Units 04:10 Sodium 130 L (137-145) mmol/L Potassium 3.5 (3.5-5.1) mmol/L Chloride 97 L (98-107) mmol/L Carbon Dioxide 24 (22-30) mmol/L BUN 13 (7-17) mg/dL Creatinine 0.97 (0.52-1.04) mg/dL Glucose 147 H (74-99) mg/dL Calcium 9.3 (8.4-10.2) mg/dL AST 30 (14-36) U/L ALT 27 (4-34) U/L Alkaline Phosphatase 73 (38-126) U/L Total Protein 7.0 (6.3-8.2) g/dL Albumin 4.3 (3.5-5.0) g/dL Calcium panel 01/29/22 Range/Units 04:10 Calcium 9.3 (8.4-10.2) mg/dL Albumin 4.3 (3.5-5.0) g/dL Pituitary panel 01/29/22 Range/Units 04:10 Sodium 130 L (137-145) mmol/L Potassium 3.5 (3.5-5.1) mmol/L Chloride 97 L (98-107) mmol/L Carbon Dioxide 24 (22-30) mmol/L BUN 13 (7-17) mg/dL Creatinine 0.97 (0.52-1.04) mg/dL Glucose 147 H (74-99) mg/dL Calcium 9.3 (8.4-10.2) mg/dL Adrenal panel 01/29/22 Range/Units 04:10 Sodium 130 L (137-145) mmol/L Potassium 3.5 (3.5-5.1) mmol/L Chloride 97 L (98-107) mmol/L Carbon Dioxide 24 (22-30) mmol/L BUN 13 (7-17) mg/dL Creatinine 0.97 (0.52-1.04) mg/dL Glucose 147 H (74-99) mg/dL Calcium 9.3 (8.4-10.2) mg/dL Total Bilirubin 0.6 (0.2-1.3) mg/dL AST 30 (14-36) U/L ALT 27 (4-34) U/L Alkaline Phosphatase 73 (38-126) U/L Total Protein 7.0 (6.3-8.2) g/dL Albumin 4.3 (3.5-5.0) g/dL - Imaging CT scan - abdomen: report reviewed, image reviewed Assessment and Plan (1) Kidney stone on left side Status: Acute Code(s): N20.0 - CALCULUS OF KIDNEY SNOMED Code(s): 41832795 (2) Hydronephrosis with renal and ureteral calculous obstruction Status: Acute Code(s): N13.2 - HYDRONEPHROSIS WITH RENAL AND URETERAL CALCULOUS OBSTRUCTION SNOMED Code(s): 738903398 (3) Calculus of ureter Status: Acute Code(s): N20.1 - CALCULUS OF URETER SNOMED Code(s): 41498153 (4) UTI (urinary tract infection) Status: Acute Code(s): N39.0 - URINARY TRACT INFECTION, SITE NOT SPECIFIED S NOMED Code(s): 65965279 Plan: CT scan shows moderate left hydroureteronephrosis due to a 5 mm left distal ureteral calculus. The CT scan also shows a 4 mm left renal calculus. Urinalysis is suggestive of a UTI. While being evaluated in the ER, she passed the distal ureteral calculus and felt symptomatic improvement. A urine culture was sent. She will be discharged home on Macrobid and follow up with me in the office in approximately 3 weeks. Time with Patient: Greater than 30
[2022-01-29] MEDS ORDERED: NITROFURANTOIN MONOHYD/M-CRYST 100 MG CAP PO SCH (21:00)
== END 2022-01-29 15:45 | disposition home or self-care (01) | DRG 690 ==
LOC: EC 03:27 → 4SSUR 11:19
PROVIDERS: ADMIT Family Medicine; ATTEND Family Medicine
DX: N13.6 Pyonephrosis (principal); N20.2 Calculus of kidney with calculus of ureter; F17.210 Nicotine dependence, cigarettes, uncomplicated; K64.9 Unspecified hemorrhoids; F41.9 Anxiety disorder, unspecified; F90.9 Attention-deficit hyperactivity disorder, unspecified type; Z87.440 Personal history of urinary (tract) infections; Z87.442 Personal history of urinary calculi; Z79.899 Other long term (current) drug therapy; Z98.890 Other specified postprocedural states; Z98.51 Tubal ligation status
CPT/HCPCS: 36415; 51798; 74018; 74176; 80053; 81001; 81025; 82150; 83690; 85025; 87086; 96374; 96375; 96376; 99285

== ENCOUNTER → 2022-09-30 | Outpatient (CLI) | payer OTHER ==
--- NOTE | 2022-09-30 11:27 | MM ---
Reason for Exam: Additional evaluation requested from abnormal screening. Last screening mammogram was performed less than 1 month ago. Patient History: Menarche at age 14. First Full-Term at age 38. Late child-bearing (after 30). Perimenopausal. Patient has history of breast feeding. Risk Values: [place] 5 year model risk: 1.4%. NCI Lifetime model risk: 12.0%. Prior Study Comparison: 05/23/2009 Bilateral Diagnostic Mammogram, [facility]. 03/23/2013 Bilateral Screening Mammogram, [facility]. 09/09/2022 Bilateral MG screening mammo w CAD, [facility]. Tissue Density: The breast tissue is extremely dense which could obscure a lesion on mammography. Findings: Analyzed By CAD. There are scattered and loosely grouped tiny benign-appearing punctate calcifications in the right breast on additional views. No definitive suspicious group of microcalcifications persist. Increase in number of calcifications bilaterally from the 2012 mammogram noted. More numerous scattered and loosely grouped tiny benign-appearing punctate calcifications in the left breast are also seen on additional views. There is occasional round circumscribed small mass seen bilaterally presumed cystic change on background dense fibroglandular tissue. No definitive suspicious focal group of microcalcification in the left breast on additional views. Overall Assessment: Probably benign, BI-RAD 3 Management: Diagnostic Mammogram of both breasts in 6 months. Precautionary bilateral short term mammogram follow-up. Results were given to the patient verbally at the time of exam. Electronically signed and approved by: Alfredo Merida M.D.
== END | disposition home or self-care (01) ==
LOC: RADMAMWWP 10:18
PROVIDERS: ATTEND Obstetrics & Gynecology
DX: R92.1 Mammographic calcification found on diagnostic imaging of breast (principal)
CPT/HCPCS: 77066; G0279; 77062

== ENCOUNTER 2024-11-01 22:11 | Emergency (ER) | payer OTHER ==
[2024-11-01 22:18] VITALS: RESP 16
[2024-11-01 22:59] LABS: Basophils # (A) 0.06 10*3/uL (0.00-0.10); Basophils % (A) 0.6 %; Eosinophils # (A) 0.14 10*3/uL (0.04-0.35); Eosinophils % (A) 1.4 %; HCT 35.7 % (37.2-46.3); HGB 12.3 g/dL (12.0-15.0); Lymphocytes # (A) 3.72 10*3/uL (0.90-5.00); Lymphocytes % (A) 36.8 %; MCH 33.1 pg (27.0-32.0); MCHC 34.5 g/dL (32.0-37.0); Mean Platelet Volume 9.6 fL (9.5-12.2); Monocytes # (A) 0.91 10*3/uL (0.20-1.00); Neutrophils # (A) 5.27 10*3/uL (1.80-7.70); Platelet Count 246 10*3/uL (140-440); RBC 3.72 10*6/uL (4.10-5.20); RDW 12.6 % (11.5-14.5); WBC 10.12 10*3/uL (4.50-10.00)
--- NOTE | 2024-11-01 22:59 | XR ---
EXAMINATION TYPE: XR hand complete LT DATE OF EXAM: 11/01/2024 10:50 PM INDICATION: Patient age:Female; 54 years old; Reason for study: cat bite to 2nd digit, pain to hand; PHH. pain COMPARISON: Left hand radiograph 09/20/2018 TECHNIQUE: Frontal, lateral and oblique views of the left hand were obtained. FINDINGS: Normal alignment of the visualized joints. No acute osseous pathology is identified. No os seous erosions. Diffuse soft tissue swelling of the second digit. No radiopaque foreign body. IMPRESSION: 1. No acute osseous pathology. 2. Diffuse soft tissue swelling of the second digit without radiopaque foreign body. [facility], , 11/01/2024 10:57 PM
--- NOTE | 2024-11-01 22:59 | ED ---
General Adult HPI - General Chief complaint: Skin/Abscess/Foreign Body Stated complaint: L hand Swollen-Cat bite Time Seen by Provider: 11/01/24 22:25 Source: patient, RN notes reviewed Mode of arrival: ambulatory Limitations: no limitations - History of Present Illness Initial comments: 54-year-old female presenting for to her complaints of left second digit pain and irritation. Patient was bit by her domestic cat approximately 6 weeks ago and the finger. A week after the bite patient was evaluated by urgent care and was prescribed antibiotics however the patient reports that the pharmacy was out of antibiotics. States that the finger was healing well however over the past week and a half the finger has been mildly swollen and red. Patient denies redness streaking up her hand, fevers, chills, nausea, vomiting. States that the cat is up-to-date on vaccines. Patient states last tetanus vaccination was in the last 5 years. - Related Data Previous Rx's Medication Instructions Recorded Amoxic-Pot Clav 875-125Mg 1 tab PO Q12HR #20 tab 11/01/24 [Augmentin 875-125] Cephalexin [Keflex] 500 mg PO Q6HR #40 cap 11/01/24 Allergies Allergy/AdvReac Type Severity Reaction Status Date / Time hydromorphone [From Dilaudid] Allergy Nausea & Verified 09/09/22 14:42 Vomiting Review of Systems ROS Statement: Those systems with pertinent positive or pertinent negative responses have been documented in the HPI. ROS Other: All systems not noted in ROS Statement are negative. Past Medical History Past Medical History: No Reported History Additional Past Medical History / Comment(s): HEMORRHOIDS. LOWER LT ABD. PAIN. LT KIDNEY STONE. SEEN IN ER 09/22/21 IN [place] FOR SWALLOWING A TANYA PIN-EGD WAS DONE AND TANYA PIN RETRIEVED History of Any Multi-Drug Resistant Organisms: None Reported Past Surgical History: Section, Tubal Ligation, Uterine Ablation Additional Past Surgical History / Comment(s): x 2,. EGD -[id number] OF SWALLOWED TANYA PIN. KINDEY STONES Past Anesthesia/Blood Transfusion Reactions: No Reported Reaction Past Psychological History: ADD/ADHD, Anxiety Smoking Status: Current every day smoker Past Alcohol Use History: Occasional Past Drug Use History: None Reported - Past Family History Mother Family Medical History: No Reported History General Exam Limitations: no limitations General appearance: alert, in no apparent distress Respiratory exam: Present: normal lung sounds bilaterally. Absent: respiratory distress, wheezes, rales, rhonchi, stridor Cardiovascular Exam: Present: regular rate, normal rhythm, normal heart sounds. Absent: systolic murmur, diastolic murmur, rubs, gallop, clicks GI/Abdominal exam: Present: soft, normal bowel sounds. Absent: distended, tenderness, guarding, rebound, rigid Left Hand Wrist exam: Present: tenderness, swelling (2nd digit). Absent: laceration, ecchymosis, deformity, crepitus, dislocation Neuro motor exam: Present: wrist extension intact, thumb opposition intact Vascular: Present: normal capillary refill, radial pulse (2+). Absent: vascular compromise Skin exam: Present: warm, dry, intact, normal color. Absent: rash Course Vital Signs 11/01/24 11/02/24 22:13 00:04 Temperature 98.9 F 98.7 F Pulse Rate 77 76 Respiratory 16 16 Rate Blood Pressure 147/90 134/81 O2 Sat by Pulse 100 99 Oximetry Medical Decision Making - Medical Decision Making Was pt. sent in by a medical professional or institution (, PA, UNDERGROUND HEAVY EQUIPMENT OPERATOR, urgent care, hospital, or [place] health [place] facility...) When possible be specific @ -Patient was advised by urgent care for the emergency department for further evaluation. Did you speak to anyone other than the patient for history (EMS, parent, family, police, friend...)? What history was obtained from this source @ -No Did you review nursing and triage notes (agree or disagree)? Why? @ -I reviewed and agree with nursing and triage notes Were old charts reviewed (outside hosp., previous admission, EMS record, old EKG, old radiological studies, urgent care reports/EKG's, [place] health care facility records)? Report findings @ -No old charts were reviewed Differential Diagnosis (chest pain, altered mental status, abdominal pain women, abdominal pain men, vaginal bleeding, weakness, fever, dyspnea, syncope, headache, dizziness, GI bleed, back pain, seizure, CVA, palpatations, mental health, musculoskeletal)? @ -Cellulitis, foreign body, flexor tenosynovitis, this list not all inclusive EKG interpreted by me (3pts min.). @ -None X-rays interpreted by me (1pt min.). @ -X-ray completed of the left hand reveals diffuse soft tissue swelling of the second digit. CT interpreted by me (1pt min.). @ -None done U/S interpreted by me (1pt. min.). @ -None done What testing was considered but not performed or refused? (CT, X-rays, U/S, labs)? Why? @ -None What meds were considered but not given or refused? Why? @ -None Did you discuss the management of the patient with other professionals (professionals i.e. , PA, UNDERGROUND HEAVY EQUIPMENT OPERATOR, lab, RT, psych nurse, social work program coordinator, nutrition club ambassador, teacher, donor relations officer, mattress spring encaser)? Give summary @ -No Was smoking cessation discussed for >3mins.? @ -No Was critical care preformed (if so, how long)? @ -No Were there social determinants of health that impacted care today? How? (Homelessness, low income, unemployed, alcoholism, drug addiction, transportation, low edu. Level, literacy, decrease access to med. care, long-term, rehab)? @ -No Was there de-escalation of care discussed even if they declined (Discuss DNR or withdrawal of care, Hospice)? DNR status @ -No What co-morbidities impacted this encounter? (DM, HTN, Smoking, COPD, CAD, Cancer, CVA, ARF, Chemo, Hep., AIDS, mental health diagnosis, sleep apnea, morbid obesity)? @ -None Was patient admitted / discharged? Hospital course, mention meds given and route, prescriptions, significant lab abnormalities, going to OR and other pertinent info. @ -Discharge. 54-year-old female presenting to emergency department for complaints of left second digit irritation. There is no obvious wound of the digit with uniform swelling of the finger mild erythema. There is no tenderness along the tendon sheath and finger is held straight and no pain with passive flexion. Laboratory testing is unremarkable including CBC and CMP. CRP less than 0.5. X-ray reveals soft tissue swelling. Patient's symptoms likely secondary to cellulitis. She is provided with this [facility] Emergency Department as an outpatient prescription for Augmentin and Keflex. Return parameters discussed. Recommend follow-up with primary care provider. Case discussed with Dr. Fay Undiagnosed new problem with uncertain prognosis? @ -No Drug Therapy requiring intensive monitoring for toxicity (Heparin, Nitro, Insulin, Cardizem)? @ -No Were any procedures done? @ -No Diagnosis/symptom? @ -Cellulitis, cat bite Acute, or Chronic, or Acute on Chronic? @ -Acute Uncomplicated (without systemic symptoms) or Complicated (systemic symptoms)? @ -Uncomplicated Side effects of treatment? @ -No Exacerbation, Progression, or Severe Exacerbation? @ -No Poses a threat to life or bodily function? How? (Chest pain, USA, NE, pneumonia, PE, COPD, DKA, ARF, appy, cholecystitis, CVA, Diverticulitis, Homicidal, Suicidal, threat to staff... and all critical care pts) @ -No - Lab Data Result diagrams: 11/01/24 22:47 11/01/24 22:47 Lab Results 11/01/24 11/01/24 11/01/24 Range/Units 22:47 22:47 22:47 WBC 10.12 H (4.50-10.00) 10*3/uL RBC 3.72 L (4.10-5.20) 10*6/uL Hgb 12.3 (12.0-15.0) g/dL Hct 35.7 L (37.2-46.3) % MCV 96.0 (80.0-97.0) fL MCH 33.1 H (27.0-32.0) pg MCHC 34.5 (32.0-37.0) g/dL Plt Count 246 (140-440) 10*3/uL MPV 9.6 (9.5-12.2) fL Immature Gran % (Auto) 0.2 % Neutrophils % 52.0 % Lymphocytes % 36.8 % Monocytes % 9.0 % Eosinophils % 1.4 % Basophils % 0.6 % Immature Gran # 0.02 (0.00-0.04) 10*3/uL Neutrophils # 5.27 (1.80-7.70) 10*3/uL Lymphocytes # 3.72 (0.90-5.00) 10*3/uL Monocytes # 0.91 (0.20-1.00) 10*3/uL Eosinophils # 0.14 (0.04-0.35) 10*3/uL Basophils # 0.06 (0.00-0.10) 10*3/uL Sodium 140 (137-145) mmol/L Potassium 3.7 (3.5-5.1) mmol/L Chloride 100 (98-107) mmol/L Carbon Dioxide 31 H (22-30) mmol/L Anion Gap 9 mmol/L BUN 19 H (7-17) mg/dL Creatinine 0.82 (0.52-1.04) mg/dL Est GFR (CKD-EPI)AfAm >90 (>60 ml/min/1.73 sqM) Est GFR (CKD-EPI)NonAf 82 (>60 ml/min/1.73 sqM) Glucose 93 (74-99) mg/dL Plasma Lactic Acid Han 0.8 (0.7-2.0) mmol/L Calcium 10.2 (8.4-10.2) mg/dL Total Bilirubin 0.4 (0.2-1.3) mg/dL AST 23 (14-36) U/L ALT 24 (4-34) U/L Alkaline Phosphatase 64 (38-126) U/L C-Reactive Protein <0.5 (<1.0) mg/dL Total Protein 7.0 (6.3-8.2) g/dL Albumin 4.3 (3.5-5.0) g/dL Disposition Clinical Impression: Cat bite, Cellulitis Disposition: HOME SELF-CARE Condition: Good Instructions (If sedation given, give patient instructions): Cellulitis (ED) Additional Instructions: Please return to the Emergency Department if symptoms worsen or any other co ncerns. Prescriptions: Amoxic-Pot Clav 875-125Mg [Augmentin 875-125] 1 tab PO Q12HR #20 tab Cephalexin [Keflex] 500 mg PO Q6HR #40 cap Is patient prescribed a controlled substance at d/c from ED?: No Referrals: Jude Keating MD [Primary Care Provider] - 1-2 days Time of Disposition: 23:59
[2024-11-01 23:33] LABS: ALT 24 U/L (4-34); AST 23 U/L (14-36); African American GFR (CKD) >90 (>60 ml/min/1.73 sqM); Albumin 4.3 g/dL (3.5-5.0); Alkaline Phosphatase 64 U/L (38-126); Anion Gap 9 mmol/L; Blood Urea Nitrogen 19 mg/dL (7-17); C Reactive Protein <0.5 mg/dL (<1.0); Calcium 10.2 mg/dL (8.4-10.2); Carbon Dioxide 31 mmol/L (22-30); Chloride 100 mmol/L (98-107); Glucose 93 mg/dL (74-99); Non-African American GFR(CKD) 82 (>60 ml/min/1.73 sqM); Potassium 3.7 mmol/L (3.5-5.1); Sodium 140 mmol/L (137-145); Total Bilirubin 0.4 mg/dL (0.2-1.3)
[2024-11-01] MEDS: cefTRIAXone IN SWFI 1,000 MG/10 ML SYRINGE IVP STA (23:58)
[2024-11-02 00:05] VITALS: BP 134/81; PULSE 76; TEMP 98.7
== END 2024-11-02 00:05 | disposition home or self-care (01) ==
LOC: EC 22:11
DX: L03.012 Cellulitis of left finger (principal); F17.200 Nicotine dependence, unspecified, uncomplicated; Z88.5 Allergy status to narcotic agent; W55.01XA Bitten by cat, initial encounter
CPT/HCPCS: 36415; 80053; 83605; 85025; 86140; 73130; 99283; 96374; J0696